=== PATIENT | female | born 1960 | race Caucasian/White ===

== ENCOUNTER 2019-07-25 23:25 | Emergency (ER) | payer OTHER ==
[~2019-07-25] VITALS: Ht 160 cm; Wt 65.0 kg
[2019-07-26] MEDS ORDERED: haloperidol lactate 5mg/ml inj IM ONE ×2 (00:20)
[2019-07-26] MEDS ORDERED: diphenhydrAMINE 50 mg/ml inj IM ONE ×2 (00:20)
[2019-07-26] MEDS ORDERED: LORazepam 2 mg/ml vial IM ONE ×2 (00:20)
[2019-07-26 00:45] LABS: URINE AMPHETAMINE SCREEN NEGATIVE (Neg); URINE BARBITUATE SCREEN NEGATIVE (Neg); URINE BENZODIAZEPINES SCREEN NEGATIVE (Neg); URINE CANNABINOID SCREEN POSITIVE (Neg); URINE COCAINE SCREEN NEGATIVE (Neg); URINE METHADONE SCREEN NEGATIVE (Neg); URINE OPIATE SCREEN NEGATIVE (Neg); URINE PHENCYCLIDINE SCREEN NEGATIVE (Neg)
[2019-07-26] MEDS ORDERED: normal saline 1000ml 1,000 ML IV ONE (01:05)
--- NOTE | 2019-07-26 01:05 | NUR ---
Patient throughout stay has been extremely agitated and violent toward staff. After cleaning her up, she continued to be belligerent. At which point DIMA Sandoval prescribed sedatives including Benadryl Haldol and Ativan. He discontinued the Ativan.
--- NOTE | 2019-07-26 01:08 | NUR ---
Patient is currently sleeping undisturbed. Vitals within normal limits.
--- NOTE | 2019-07-26 01:11 | NUR ---
Prior to patient's sedation, the patient's daughter called and spoke to the desktop support technician and apologized for her mother's behavior and offered any additional information necessary.
[2019-07-26 01:55] VITALS: BP 112/67
[2019-07-26 02:29] LABS: ALANINE AMINOTRANSFERASE 21 U/L (12-78); ALBUMIN/GLOBULIN RATIO 1.4 (1.1-1.5); ALKALINE PHOSPHATASE 72 IU/L (46-116); ANION GAP 13 (8-16); ASPARTATE AMINO TRANSFERASE 15 U/L (10-37); BILIRUBIN,TOTAL 0.1 MG/DL (0.1-1.0); BLOOD UREA NITROGEN 17 MG/DL (7-18); BUN/CREATININE RATIO 28.8 (6.6-38.0); CALCIUM 8.4 MG/DL (8.5-10.1); CHLORIDE 117 MMOL/L (99-107); CREATININE 0.59 MG/DL (0.40-0.90); ETHANOL 0.222 GM/DL (0.0-0.010); GLUCOSE 129 MG/DL (70-104); SODIUM 149 MMOL/L (135-145); TOTAL CARBON DIOXIDE 18.8 MMOL/L (24-32); TOTAL PROTEIN 6.8 G/DL (6.4-8.2); eGFR > 90 ML/MIN
[2019-07-26] MEDS ORDERED: potassium Cl 20 mEq SR tablet PO ONE (02:40)
--- NOTE | 2019-07-26 02:45 | NUR ---
Dr. Werner ordered 2 tablets of K-Dur. However he stated to wait until the patient is arousable at discharge to give it to her.
[2019-07-26 03:21] LABS: BASOPHILS % (AUTO) 0.5 % (0-1); EOSINOPHILS # (AUTO) 0.1 X10'3 (0-0.9); EOSINOPHILS % (AUTO) 1.1 % (0-6); HEMATOCRIT 39.7 % (35.0-45.0); HEMOGLOBIN 13.3 g/dl (12.0-16.0); LYMPHOCYTES # (AUTO) 2.4 X10'3 (1.1-4.8); LYMPHOCYTES % (AUTO) 23.3 % (21-51); MEAN CORPUSCULAR HEMOGLOBIN 28.7 PG (27.0-31.0); MEAN CORPUSCULAR HGB CONC 33.5 g/dL (33.0-36.5); MEAN CORPUSCULAR VOLUME 85.9 FL (78-98); MEAN PLATELET VOLUME 9.2 FL (7.4-10.4); MONOCYTES # (AUTO) 0.5 X10'3 (0-0.9); NEUTROPHILS # (AUTO) 7.1 X10'3 (1.8-7.7); NEUTROPHILS % (AUTO) 70.1 % (42-75); PLATELET COUNT 318 X10'3 (140-440); RED BLOOD COUNT 4.62 X10'6 (4.20-5.60); RED CELL DISTRIBUTION WIDTH 13.4 % (11.5-14.5); WHITE BLOOD COUNT 10.1 X10'3 (4.5-11.0)
== END 2019-07-26 05:46 | disposition home or self-care (01) ==
LOC: ER 23:26
DX: F10.129 Alcohol abuse with intoxication, unspecified (principal); R11.2 Nausea with vomiting, unspecified; Y90.9 Presence of alcohol in blood, level not specified
CPT/HCPCS: 36415; 80053; 80305; 80320; 85025; 96360; 96372; 99283; J1200; J1630; J2060; J7030